=== PATIENT | female | born 1975 | race Caucasian/White ===

== ENCOUNTER 2016-06-03 07:38 | Emergency (ER) | payer OTHER ==
--- NOTE | 2016-06-03 08:21 | ED CLINICAL REPORT ---
Clinical Report - Physicians/Mid Levels [facility] [address] [place] [address] 06/03/2016 7:38 Patient: OLAMIDE PEREZ Time Seen: 08:13 Jun 03 2016. Arrived- By private vehicle. Historian- patient. CPT: ER phys charges level 4 (#[id number]). HISTORY OF PRESENT ILLNESS Chief Complaint: SKIN RASH. This started last night and is still present. It is described as itchy. It has been located on the trunk, right upper extremity and left upper extremity. No cause has been identified. Similar symptoms previously: None. Recent medical care: Not recently seen/assessed. REVIEW OF SYSTEMS No sore throat, cough, difficulty breathing, hoarseness or lump in throat. No enlarged lymph nodes, chest pain, abdominal pain, nausea or diarrhea. No joint pain. All systems otherwise negative, except as recorded above. PAST HISTORY Sprain. Respiratory Distress. Bronchitis. URI. COPD - Chronic Obstructive Pulmonary Disease. Lifestyle / Substance Problems. Abscess. Dental Abscess. Dental Caries. Dental Pain. Abdominal Pain. Immunizations. King's Cyst. Lower Extremity Pain. Obesity. Hypertension. LNMP - Last Normal Menstrual Period. . ADDITIONAL SURGERIES: Fracture Repair. Lt ankle . Medications: Effexor Oral 140mg , daily. Lisinopril Oral 10 mg, daily. Methadone HCl Oral 100mg daily . Allergies: Erythromycin. SOCIAL HISTORY Heavy tobacco smoker (cigarette)- 1 pack per day. ADDITIONAL NOTES The nursing notes have been reviewed. PHYSICAL EXAM Vital Signs: 06/03/2016 07:45 BP: 115/76. HR: 89. RR: 16. O2 saturation: 100%. Temp: 98.3 F. Pain level now: 6/10. Appearance: Alert. No acute distress. Eyes: Pupils equal, round and reactive to light. Conjunctivae and eyelids normal. No conjunctival findings. ENT: Ears normal. Nose normal. Pharynx normal. No pharyngeal erythema or swelling. Neck: Neck supple. CVS: Normal heart rate and rhythm. Heart sounds normal. Respiratory: No respiratory distress. Breath sounds normal. Chest nontender. No wheezes. Skin: Skin warm. No tender indurated area. No cellulitis. Rash present on the trunk. Rash present on the right upper extremity and left upper extremity. The rash is urticarial and erythematous. No abscess. Extremities: Normal external inspection. Extremities nontender. Neuro: Oriented X 3. No motor deficit. No sensory deficit. PROGRESS AND PROCEDURES Course of Care: Has not taken any allergy medications since onset of rash. Patient/family counseled. Disposition: Discharged. Condition: stable. CLINICAL IMPRESSION Acute hives secondary to allergy and unknown cause. INSTRUCTIONS (Check enviornment for all possibilities.). Warnings: Further evaluation is necessary. GENERAL WARNINGS: Return or contact your physician immediately if your condition worsens or changes unexpectedly, if not improving as expected, or if other problems arise. Prescription Medications: Prednisone 20 mg: take 3 orally every day for 5 days. Dispense fifteen (15). No refills. OTC Medications: Benadryl Allergy 25 mg (available over the counter): take 1-2 orally every 6 hours as needed for itching or allergies. Dispense twenty (20). No refill. Substitution is permissible. Follow-up: Return to the emergency department if worse. Follow up with your doctor in two days if not better. Understanding of the discharge instructions verbalized by patient. (Electronically signed by Misael Hill MD 06/06/2016 11:55)
--- NOTE | 2016-06-03 08:21 | ED NURSING NOTES ---
Clinical Report - Nurses [facility] [address] [place] [address] 06/03/2016 7:38 Patient: OLAMIDE PEREZ TRIAGE Triage time 07:45. Acuity: LEVEL 4. Chief Complaint: SKIN RASH. 07:55 06/03/16. Alert. No acute distress. SEPSIS SCREEN: Sepsis Screen. Negative (no infection suspected/documented). --07:55 Felicitas Salguero R.N. 07:45 06/03/16. BP: 115/76. HR: 89. RR: 16. O2 saturation: 100% on room air. Temp: 98.3 F. Pain level now: 09/14. Additional comments: ankle pain. --07:55 Felicitas Salguero R.N. Weight: 149.6 kg stated. Height/Length: 69 inches Per Patient. BMI: 48.7. --07:59 Felicitas Salguero R.N. Medications Effexor Oral 140mg , daily. Lisinopril Oral 10 mg, daily. Methadone HCl Oral 100mg daily . --07:48 Felicitas Salguero R.N. Allergies Erythromycin. --07:48 Felicitas Salguero R.N. History Arrived by private vehicle. Historian: patient. Location - back and abdomen. This started last night. It is described as itchy and burning. ( pt states she has not had anything new to eat and has not washed clothes with different detergent.). ( foot pain). Treatment MOTOR COACH DRIVER: None. PAST MEDICAL HX: Immunizations: status is unknown. Last normal menstrual period- 1 weeks ago. Denies current . SOCIAL HX: Heavy tobacco smoker- 1 pack per day. No alcohol use or drug use. ABUSE ASSESSMENT: No report of abuse. FALL RISK ASSESSMENT: Fall risk assessment completed. No fall risk identified. NUTRITIONAL RISK ASSESSMENT: The nutritional risk assessment revealed no deficiencies. FUNCTIONAL ASSESSMENT: Functional assessment: no impairments noted. LEARNING NEEDS ASSESSMENT: The learning needs assessment revealed no barriers. SKIN INTEGRITY ASSESSMENT: Skin integrity risk assessment completed. No skin integrity risk identified. --07:55 Felicitas Salguero R.N. PROBLEMS: Sprain. Respiratory Distress. Bronchitis. URI. COPD - Chronic Obstructive Pulmonary Disease. Lifestyle / Substance Problems. Abscess. Dental Abscess. Dental Caries. Dental Pain. Abdominal Pain. Immunizations. King's Cyst. Lower Extremity Pain. Obesity. Hypertension. LNMP - Last Normal Menstrual Period. --07:50 Felicitas Salguero R.N. ADDITIONAL SURGERIES: Fracture Repair. Lt ankle . --07:50 Felicitas Salguero R.N. Interventions ID band on patient. To treatment room. --07:55 Felicitas Salguero R.N. PHYSICAL ASSESSMENT 07:58 06/03/16. Ambulatory to room. GENERAL / NEURO / PSYCH: Alert. The patient does not appear to be in acute distress. Oriented X 4. RESPIRATORY: Respirations not labored. CVS: Capillary refill less than 2 seconds. Pulses within normal limits. SKIN: Skin is warm, dry and non-tender. Skin rash present. Urticaria present. Normal skin turgor. --07:58 Felicitas Salguero R.N. NURSING PROGRESS NOTES 07:59 06/03/16. Two patient identifiers checked. Call light placed in reach. Bed placed in lowest position. Brakes of bed on. Patient ready for evaluation- chart flagged and notification provided. --07:59 Felicitas Salguero R.N. DISPOSITION / DISCHARGE 08:38 06/03/16. No learning barriers present. Discharge instructions provided and reviewed with the patient. Reviewed warnings. Reviewed medication(s). Treatments reviewed. Patient verbalized understanding. Written instructions provided in Japanese. The patient was discharged by the physician. She was discharged home. She left the Emergency Department on crutches and via private vehicle. Patient driving. --08:38 Felicitas Salguero R.N. 08:36 06/03/16. BP: 117/72. HR: 102. RR: 17. O2 saturation: 100%. Temp: deferred. Pain level now: 09/14. --08:38 Felicitas Salguero R.N. 08:39 06/03/16. Departure time: 0836. --08:39 Felicitas Salguero R.N. Locked/Released at 06/03/2016 8:44 by Felicitas Salguero R.N.
--- NOTE | 2016-06-03 08:21 | ED NURSING NOTES ---
Clinical Report - Nurses [facility] [address] [place] [address] 06/03/2016 7:38 Patient: OLAMIDE PEREZ TRIAGE Triage time 07:45. Acuity: LEVEL 4. Chief Complaint: SKIN RASH. 07:55 06/03/16. Alert. No acute distress. SEPSIS SCREEN: Sepsis Screen. Negative (no infection suspected/documented). --07:55 Felicitas Salguero R.N. 07:45 06/03/16. BP: 115/76. HR: 89. RR: 16. O2 saturation: 100% on room air. Temp: 98.3 F. Pain level now: 09/14. Additional comments: ankle pain. --07:55 Felicitas Salguero R.N. Weight: 149.6 kg stated. Height/Length: 69 inches Per Patient. BMI: 48.7. --07:59 Felicitas Salguero R.N. Medications Effexor Oral 140mg , daily. Lisinopril Oral 10 mg, daily. Methadone HCl Oral 100mg daily . --07:48 Felicitas Salguero R.N. Allergies Erythromycin. --07:48 Felicitas Salguero R.N. History Arrived by private vehicle. Historian: patient. Location - back and abdomen. This started last night. It is described as itchy and burning. ( pt states she has not had anything new to eat and has not washed clothes with different detergent.). ( foot pain). Treatment LEGAL TRANSCRIBER: None. PAST MEDICAL HX: Immunizations: status is unknown. Last normal menstrual period- 1 weeks ago. Denies current . SOCIAL HX: Heavy tobacco smoker- 1 pack per day. No alcohol use or drug use. ABUSE ASSESSMENT: No report of abuse. FALL RISK ASSESSMENT: Fall risk assessment completed. No fall risk identified. NUTRITIONAL RISK ASSESSMENT: The nutritional risk assessment revealed no deficiencies. FUNCTIONAL ASSESSMENT: Functional assessment: no impairments noted. LEARNING NEEDS ASSESSMENT: The learning needs assessment revealed no barriers. SKIN INTEGRITY ASSESSMENT: Skin integrity risk assessment completed. No skin integrity risk identified. --07:55 Felicitas Salguero R.N. PROBLEMS: Sprain. Respiratory Distress. Bronchitis. URI. COPD - Chronic Obstructive Pulmonary Disease. Lifestyle / Substance Problems. Abscess. Dental Abscess. Dental Caries. Dental Pain. Abdominal Pain. Immunizations. King's Cyst. Lower Extremity Pain. Obesity. Hypertension. LNMP - Last Normal Menstrual Period. --07:50 Felicitas Salguero R.N. ADDITIONAL SURGERIES: Fracture Repair. Lt ankle . --07:50 Felicitas Salguero R.N. Interventions ID band on patient. To treatment room. --07:55 Felicitas Salguero R.N. PHYSICAL ASSESSMENT 07:58 06/03/16. Ambulatory to room. GENERAL / NEURO / PSYCH: Alert. The patient does not appear to be in acute distress. Oriented X 4. RESPIRATORY: Respirations not labored. CVS: Capillary refill less than 2 seconds. Pulses within normal limits. SKIN: Skin is warm, dry and non-tender. Skin rash present. Urticaria present. Normal skin turgor. --07:58 Felicitas Salguero R.N. NURSING PROGRESS NOTES 07:59 06/03/16. Two patient identifiers checked. Call light placed in reach. Bed placed in lowest position. Brakes of bed on. Patient ready for evaluation- chart flagged and notification provided. --07:59 Felicitas Salguero R.N. DISPOSITION / DISCHARGE 08:38 06/03/16. No learning barriers present. Discharge instructions provided and reviewed with the patient. Reviewed warnings. Reviewed medication(s). Treatments reviewed. Patient verbalized understanding. Written instructions provided in Thai. The patient was discharged by the physician. She was discharged home. She left the Emergency Department on crutches and via private vehicle. Patient driving. --08:38 Felicitas Salguero R.N. 08:36 06/03/16. BP: 117/72. HR: 102. RR: 17. O2 saturation: 100%. Temp: deferred. Pain level now: 09/14. --08:38 Felicitas Salguero R.N. 08:39 06/03/16. Departure time: 0836. --08:39 Felicitas Salguero R.N. Locked/Released at 06/03/2016 8:44 by Felicitas Salguero R.N.
--- NOTE | 2016-06-03 08:21 | ED CLINICAL REPORT ---
Clinical Report - Physicians/Mid Levels [facility] [address] [place] [address] 06/03/2016 7:38 Patient: OLAMIDE PEREZ Time Seen: 08:13 Jun 03 2016. Arrived- By private vehicle. Historian- patient. CPT: ER phys charges level 4 (#[id number]). HISTORY OF PRESENT ILLNESS Chief Complaint: SKIN RASH. This started last night and is still present. It is described as itchy. It has been located on the trunk, right upper extremity and left upper extremity. No cause has been identified. Similar symptoms previously: None. Recent medical care: Not recently seen/assessed. REVIEW OF SYSTEMS No sore throat, cough, difficulty breathing, hoarseness or lump in throat. No enlarged lymph nodes, chest pain, abdominal pain, nausea or diarrhea. No joint pain. All systems otherwise negative, except as recorded above. PAST HISTORY Sprain. Respiratory Distress. Bronchitis. URI. COPD - Chronic Obstructive Pulmonary Disease. Lifestyle / Substance Problems. Abscess. Dental Abscess. Dental Caries. Dental Pain. Abdominal Pain. Immunizations. King's Cyst. Lower Extremity Pain. Obesity. Hypertension. LNMP - Last Normal Menstrual Period. . ADDITIONAL SURGERIES: Fracture Repair. Lt ankle . Medications: Effexor Oral 140mg , daily. Lisinopril Oral 10 mg, daily. Methadone HCl Oral 100mg daily . Allergies: Erythromycin. SOCIAL HISTORY Heavy tobacco smoker (cigarette)- 1 pack per day. ADDITIONAL NOTES The nursing notes have been reviewed. PHYSICAL EXAM Vital Signs: 06/03/2016 07:45 BP: 115/76. HR: 89. RR: 16. O2 saturation: 100%. Temp: 98.3 F. Pain level now: 6/10. Appearance: Alert. No acute distress. Eyes: Pupils equal, round and reactive to light. Conjunctivae and eyelids normal. No conjunctival findings. ENT: Ears normal. Nose normal. Pharynx normal. No pharyngeal erythema or swelling. Neck: Neck supple. CVS: Normal heart rate and rhythm. Heart sounds normal. Respiratory: No respiratory distress. Breath sounds normal. Chest nontender. No wheezes. Skin: Skin warm. No tender indurated area. No cellulitis. Rash present on the trunk. Rash present on the right upper extremity and left upper extremity. The rash is urticarial and erythematous. No abscess. Extremities: Normal external inspection. Extremities nontender. Neuro: Oriented X 3. No motor deficit. No sensory deficit. PROGRESS AND PROCEDURES Course of Care: Has not taken any allergy medications since onset of rash. Patient/family counseled. Disposition: Discharged. Condition: stable. CLINICAL IMPRESSION Acute hives secondary to allergy and unknown cause. INSTRUCTIONS (Check enviornment for all possibilities.). Warnings: Further evaluation is necessary. GENERAL WARNINGS: Return or contact your physician immediately if your condition worsens or changes unexpectedly, if not improving as expected, or if other problems arise. Prescription Medications: Prednisone 20 mg: take 3 orally every day for 5 days. Dispense fifteen (15). No refills. OTC Medications: Benadryl Allergy 25 mg (available over the counter): take 1-2 orally every 6 hours as needed for itching or allergies. Dispense twenty (20). No refill. Substitution is permissible. Follow-up: Return to the emergency department if worse. Follow up with your doctor in two days if not better. Understanding of the discharge instructions verbalized by patient. (Electronically signed by Misael Hill MD 06/06/2016 11:55)
--- NOTE | 2016-06-06 11:55 | ED MED RECONCILIATION SUMMARY ---
Patient: OLAMIDE PEREZ Medication Reconciliation Report [facility] VisitID: [id number] [address] [place] [address] 41y, F Registration Date/Time: 06/03/2016 Weight: 149.6 kg Height/Length: 69 in. BMI: 48.7 ALLERGIES: Erythromycin The patient's Home Medications are listed below: THE FOLLOWING MEDICATIONS NEED TO BE RECONCILED: Effexor Oral 140mg , daily Lisinopril Oral 10 mg, daily Methadone HCl Oral 100mg daily The source(s) of the original Home Medication information: Not obtained. The following Medications were given to the patient in the Emergency Department: None. The following Medications were prescribed to the patient: Benadryl Allergy 25 mg (available over the counter): take 1-2 orally every 6 hours as needed for itching or allergies. Dispense twenty (20). No refill. Substitution is permissible. -- Miasel Hill MD Prednisone 20 mg: take 3 orally every day for 5 days. Dispense fifteen (15). No refills. -- Misael Hill MD
--- NOTE | 2016-06-06 11:55 | ED MAR SUMMARY ---
..... Medication Administration Record [facility] [address] [place], [place] [id number] Patient: OLAMIDE PEREZ Visit ID: [id number] 41y, F Weight: 149.6 kg Height/Length: 69 in BMI: 48.7 ALLERGIES: Erythromycin
--- NOTE | 2016-06-06 11:55 | ED MED RECONCILIATION SUMMARY ---
Patient: OLAMIDE PEREZ Medication Reconciliation Report [facility] VisitID: [id number] [address] [place] [address] 41y, F Registration Date/Time: 06/03/2016 Weight: 149.6 kg Height/Length: 69 in. BMI: 48.7 ALLERGIES: Erythromycin The patient's Home Medications are listed below: THE FOLLOWING MEDICATIONS NEED TO BE RECONCILED: Effexor Oral 140mg , daily Lisinopril Oral 10 mg, daily Methadone HCl Oral 100mg daily The source(s) of the original Home Medication information: Not obtained. The following Medications were given to the patient in the Emergency Department: None. The following Medications were prescribed to the patient: Benadryl Allergy 25 mg (available over the counter): take 1-2 orally every 6 hours as needed for itching or allergies. Dispense twenty (20). No refill. Substitution is permissible. -- Misael Hill MD Prednisone 20 mg: take 3 orally every day for 5 days. Dispense fifteen (15). No refills. -- Misael Hill MD
--- NOTE | 2016-06-06 11:55 | ED MAR SUMMARY ---
..... Medication Administration Record [facility] [address] [place], [place] [id number] Patient: OLAMIDE PEREZ Visit ID: [id number] 41y, F Weight: 149.6 kg Height/Length: 69 in BMI: 48.7 ALLERGIES: Erythromycin
--- NOTE | 2016-06-06 11:55 | ED DISCHARGE INSTRUCTIONS ---
Patient: OLAMIDE PEREZ General Instructions [facility] VisitID: [id number] [place] [address] 41y, F Registration Date/Time: 06/03/2016 Acute hives secondary to allergy and unknown cause. INSTRUCTIONS (Check enviornment for all possibilities.). Warnings: Further evaluation is necessary. GENERAL WARNINGS: Return or contact your physician immediately if your condition worsens or changes unexpectedly, if not improving as expected, or if other problems arise. Prescription Medications: Prednisone 20 mg: take 3 orally every day for 5 days. Dispense fifteen (15). No refills. OTC Medications: Benadryl Allergy 25 mg (available over the counter): take 1-2 orally every 6 hours as needed for itching or allergies. Dispense twenty (20). No refill. Substitution is permissible. Follow-up: Return to the emergency department if worse. Follow up with your doctor in two days if not better. Understanding of the discharge instructions verbalized by patient. ADDITIONAL INFORMATION Hives Hives is an itchy red rash that can appear suddenly and move about your body. It goes away in one place and comes back in another. This is usually caused by something that you are allergic to such as: EATING: fruit, shellfish, chocolate, nuts, tomatoes or medicine BREATHING: pollens, animal hair/fur or mold spores Exposure to cold air, sun rays or exercise can sometimes cause an attack. Many times we cannot find a cause. Medicines can be used to reduce itching and swelling. The rash will usually fade over several days, but can sometimes last up to two weeks. Home Care: 1) Do not wear tight clothing and do not take hot baths/showers since heat can make the itching worse. 2) An ice pack (ice cubes in a plastic bag, wrapped in a towel) will reduce local areas of redness and itching. Lanacaine cream or Solarcaine spray (or other product containing "benzocaine") will reduce itching. 3) Oral Benadryl (diphenhydramine) is an antihistamine available at drug and grocery stores. Unless a prescription antihistamine was given, Benadryl may be used to reduce itching if large areas of the skin are involved. Use lower doses during the daytime and higher doses at bedtime since the drug may make you sleepy. [NOTE: Do not use Benadryl if you have glaucoma or if you are a man with trouble urinating due to an enlarged prostate.] Claritin (loratadine) is an antihistamine that causes less drowsiness and is a good alternative for daytime use. 4) If you know what you are sensitive to, avoid this substance. Future reactions could be worse than this one. Follow Up with your doctor as directed by our staff, if symptoms do not begin to improve in two days. If you have had a severe reaction, or have had several episodes of hives, then ask your doctor about allergy testing to find out what you are allergic to. Get Prompt Medical Attention if any of the following occur: -- Trouble breathing or swallowing -- New or increased swelling in the face, lips, tongue or throat -- Dizziness, weakness or fainting Diphenhydramine Tannate Chewable tablet What is this medicine? DIPHENHYDRAMINE (dye camila baig) is an antihistamine. It is used to treat the symptoms of an allergic reaction. How should I use this medicine? Take this medicine by mouth. Chew it completely before swallowing. Follow the directions on the prescription label. Take your doses at regular intervals. Do not take your medicine more often than directed. Talk to your lithographic plate maker regarding the use of this medicine in children. While this drug may be prescribed for children as young as 6 years old for selected conditions, precautions do apply. Patients over 65 years old may have a stronger reaction and need a smaller dose. What side effects may I notice from receiving this medicine? Side effects that you should report to your doctor or health healthcare prof as soon as possible: allergic reactions like skin rash, itching or hives, swelling of the face, lips, or tongue changes in vision confused, agitated, nervous irregular or fast heartbeat tremor trouble passing urine unusual bleeding or bruising unusually weak or tired Side effects that usually do not require medical attention (report to your doctor or health healthcare prof if they continue or are bothersome): constipation, diarrhea drowsy headache loss of appetite stomach upset, vomiting thick mucous What may interact with this medicine? Do not take this medicine with any of the following medications: MAOIs like Carbex, Eldepryl, Marplan, Nardil, and Parnate This medicine may also interact with the following medications: alcohol barbiturates, like phenobarbital medicines for bladder spasm like oxybutynin, tolterodine medicines for blood pressure medicines for depression, anxiety, or psychotic disturbances medicines for movement abnormalities or Parkinson's disease medicines for sleep other medicines for cold, cough or allergy some medicines for the stomach like chlordiazepoxide, dicyclomine What if I miss a dose? If you miss a dose, take it as soon as you can. If it is almost time for your next dose, take only that dose. Do not take double or extra doses. Where should I keep my medicine? Keep out of the reach of children. Store at room temperature between 15 and 30 degrees C (59 and 86 degrees F). Keep container closed tightly. Throw away any unused medicine after the expiration date. What should I tell my health care provider before I take this medicine? They need to know if you have any of these conditions: glaucoma high blood pressure heart disease liver disease lung or breathing disease, like asthma pain or difficulty passing urine phenylketonuria prostate trouble ulcers or other stomach problems an unusual or allergic reaction to diphenhydramine, sulfites, other medicines foods, dyes, or preservatives or trying to get breast-feeding What should I watch for while using this medicine? Visit your doctor or health healthcare prof for regular check ups. Tell your doctor or healthcare professional if your symptoms do not start to get better or if they get worse. Your mouth may get dry. Chewing sugarless gum or sucking hard candy, and drinking plenty of water may help. Contact your doctor if the problem does not go away or is severe. This medicine may cause dry eyes and blurred vision. If you wear contact lenses you may feel some discomfort. Lubricating drops may help. See your eye doctor if the problem does not go away or is severe. You may get drowsy or dizzy. Do not drive, use machinery, or do anything that needs mental alertness until you know how this medicine affects you. Do not stand or sit up quickly, especially if you are an older patient. This reduces the risk of dizzy or fainting spells. Alcohol may interfere with the effect of this medicine. Avoid alcoholic drinks. You have been given the following additional information: Hives Diphenhydramine Tannate Chewable tablet (Electronically signed by Misael Hill MD 06/06/2016 11:55)
--- NOTE | 2016-06-06 11:55 | ED DISCHARGE INSTRUCTIONS ---
Patient: OLAMIDE PEREZ General Instructions [facility] VisitID: [id number] [place] [address] 41y, F Registration Date/Time: 06/03/2016 Acute hives secondary to allergy and unknown cause. INSTRUCTIONS (Check enviornment for all possibilities.). Warnings: Further evaluation is necessary. GENERAL WARNINGS: Return or contact your physician immediately if your condition worsens or changes unexpectedly, if not improving as expected, or if other problems arise. Prescription Medications: Prednisone 20 mg: take 3 orally every day for 5 days. Dispense fifteen (15). No refills. OTC Medications: Benadryl Allergy 25 mg (available over the counter): take 1-2 orally every 6 hours as needed for itching or allergies. Dispense twenty (20). No refill. Substitution is permissible. Follow-up: Return to the emergency department if worse. Follow up with your doctor in two days if not better. Understanding of the discharge instructions verbalized by patient. ADDITIONAL INFORMATION Hives Hives is an itchy red rash that can appear suddenly and move about your body. It goes away in one place and comes back in another. This is usually caused by something that you are allergic to such as: EATING: fruit, shellfish, chocolate, nuts, tomatoes or medicine BREATHING: pollens, animal hair/fur or mold spores Exposure to cold air, sun rays or exercise can sometimes cause an attack. Many times we cannot find a cause. Medicines can be used to reduce itching and swelling. The rash will usually fade over several days, but can sometimes last up to two weeks. Home Care: 1) Do not wear tight clothing and do not take hot baths/showers since heat can make the itching worse. 2) An ice pack (ice cubes in a plastic bag, wrapped in a towel) will reduce local areas of redness and itching. Lanacaine cream or Solarcaine spray (or other product containing "benzocaine") will reduce itching. 3) Oral Benadryl (diphenhydramine) is an antihistamine available at drug and grocery stores. Unless a prescription antihistamine was given, Benadryl may be used to reduce itching if large areas of the skin are involved. Use lower doses during the daytime and higher doses at bedtime since the drug may make you sleepy. [NOTE: Do not use Benadryl if you have glaucoma or if you are a man with trouble urinating due to an enlarged prostate.] Claritin (loratadine) is an antihistamine that causes less drowsiness and is a good alternative for daytime use. 4) If you know what you are sensitive to, avoid this substance. Future reactions could be worse than this one. Follow Up with your doctor as directed by our staff, if symptoms do not begin to improve in two days. If you have had a severe reaction, or have had several episodes of hives, then ask your doctor about allergy testing to find out what you are allergic to. Get Prompt Medical Attention if any of the following occur: -- Trouble breathing or swallowing -- New or increased swelling in the face, lips, tongue or throat -- Dizziness, weakness or fainting Diphenhydramine Tannate Chewable tablet What is this medicine? DIPHENHYDRAMINE (dye camila baig) is an antihistamine. It is used to treat the symptoms of an allergic reaction. How should I use this medicine? Take this medicine by mouth. Chew it completely before swallowing. Follow the directions on the prescription label. Take your doses at regular intervals. Do not take your medicine more often than directed. Talk to your retail performance coach regarding the use of this medicine in children. While this drug may be prescribed for children as young as 6 years old for selected conditions, precautions do apply. Patients over 65 years old may have a stronger reaction and need a smaller dose. What side effects may I notice from receiving this medicine? Side effects that you should report to your doctor or health workforce investment act career manager as soon as possible: allergic reactions like skin rash, itching or hives, swelling of the face, lips, or tongue changes in vision confused, agitated, nervous irregular or fast heartbeat tremor trouble passing urine unusual bleeding or bruising unusually weak or tired Side effects that usually do not require medical attention (report to your doctor or health workforce investment act career manager if they continue or are bothersome): constipation, diarrhea drowsy headache loss of appetite stomach upset, vomiting thick mucous What may interact with this medicine? Do not take this medicine with any of the following medications: MAOIs like Carbex, Eldepryl, Marplan, Nardil, and Parnate This medicine may also interact with the following medications: alcohol barbiturates, like phenobarbital medicines for bladder spasm like oxybutynin, tolterodine medicines for blood pressure medicines for depression, anxiety, or psychotic disturbances medicines for movement abnormalities or Parkinson's disease medicines for sleep other medicines for cold, cough or allergy some medicines for the stomach like chlordiazepoxide, dicyclomine What if I miss a dose? If you miss a dose, take it as soon as you can. If it is almost time for your next dose, take only that dose. Do not take double or extra doses. Where should I keep my medicine? Keep out of the reach of children. Store at room temperature between 15 and 30 degrees C (59 and 86 degrees F). Keep container closed tightly. Throw away any unused medicine after the expiration date. What should I tell my health care provider before I take this medicine? They need to know if you have any of these conditions: glaucoma high blood pressure heart disease liver disease lung or breathing disease, like asthma pain or difficulty passing urine phenylketonuria prostate trouble ulcers or other stomach problems an unusual or allergic reaction to diphenhydramine, sulfites, other medicines foods, dyes, or preservatives or trying to get breast-feeding What should I watch for while using this medicine? Visit your doctor or health workforce investment act career manager for regular check ups. Tell your doctor or healthcare professional if your symptoms do not start to get better or if they get worse. Your mouth may get dry. Chewing sugarless gum or sucking hard candy, and drinking plenty of water may help. Contact your doctor if the problem does not go away or is severe. This medicine may cause dry eyes and blurred vision. If you wear contact lenses you may feel some discomfort. Lubricating drops may help. See your eye doctor if the problem does not go away or is severe. You may get drowsy or dizzy. Do not drive, use machinery, or do anything that needs mental alertness until you know how this medicine affects you. Do not stand or sit up quickly, especially if you are an older patient. This reduces the risk of dizzy or fainting spells. Alcohol may interfere with the effect of this medicine. Avoid alcoholic drinks. You have been given the following additional information: Hives Diphenhydramine Tannate Chewable tablet (Electronically signed by Misael Hill MD 06/06/2016 11:55)
== END 2016-06-03 08:39 | disposition home or self-care (01) ==
LOC: ED SRH 07:38
DX: L50.0 Allergic urticaria (principal); I10 Essential (primary) hypertension; J44.9 Chronic obstructive pulmonary disease, unspecified; Z79.899 Other long term (current) drug therapy; Z88.1 Allergy status to other antibiotic agents

== ENCOUNTER 2016-07-29 08:46 | Emergency (ER) | payer OTHER ==
--- NOTE | 2016-07-29 10:37 | DIAGNOSTIC IMAGING REPORT ---
PROCEDURE: XR SHOULDER 2 OR MORE VW-RIGHT INDICATION: TRAUMA/INJURY TECHNIQUE: Three views. COMPARISON: None. FINDINGS: No fracture or dislocation. Normal AC and glenohumeral joints. 5 mm rotator cuff calcification consistent with calcific tendonitis. IMPRESSION: 1. Calcific tendonitis 2. No acute changes.
--- NOTE | 2016-07-29 11:05 | ED ORDER SUMMARY ---
..... Patient: OLAMIDE PEREZ OrderSheet [facility] VisitID: [id number] [address] [place] [address] 41y, F Registration Date/Time: 07/29/2016 ORDER SHEET Weight: 149.6 kg (stated) Allergies: Erythromycin GENERAL ORDERS: Shoulder 2V or more Right Urgent (10:17 07/29/2016 Safia GLOVER) (Ack 10:23 Raymond) (10:42 Africa Mata) MEDICATION ORDERS: IV FLUIDS: ORDER SHEET NOTES: [Electronically signed by Blanca Miranda R.N. (11:22 07/29/2016)] [Electronically signed by Bandar Bautista MD (02:49 07/31/2016)] [Electronically locked/signed by Blanca Miranda R.N. (11:07/29/2016)]
--- NOTE | 2016-07-29 11:05 | ED ORDER SUMMARY ---
..... Patient: OLAMIDE PEREZ OrderSheet [facility] VisitID: [id number] [address] [place] [address] 41y, F Registration Date/Time: 07/29/2016 ORDER SHEET Weight: 149.6 kg (stated) Allergies: Erythromycin GENERAL ORDERS: Shoulder 2V or more Right Urgent (10:17 07/29/2016 Safia GLOVER) (Ack 10:23 Raymond) (10:42 Africa Mata) MEDICATION ORDERS: IV FLUIDS: ORDER SHEET NOTES: [Electronically signed by Blanca Miranda R.N. (11:22 07/29/2016)] [Electronically signed by Bandar Bautista MD (02:49 07/31/2016)] [Electronically locked/signed by Blanca Miranda R.N. (11:07/29/2016)]
--- NOTE | 2016-07-29 11:05 | ED CLINICAL REPORT ---
Clinical Report - Physicians/Mid Levels [facility] [address] [place] [place] [address] 07/29/2016 8:48 Patient: OLAMIDE PEREZ Time Seen: 09:36. Arrived- By private vehicle. Historian- patient. HISTORY OF PRESENT ILLNESS Chief Complaint: FALL. Location of injuries- right shoulder. The injury occurred 2 days. Occurred at home. Fell down > 15 stairs while standing. The patient complains of moderate pain. No neck pain or loss of consciousness. REVIEW OF SYSTEMS The patient has had new onset of pain-related weakness of the right arm (moderate). No chills, fever, sweats, calf pain or chest pain. No cough, difficulty breathing, pedal edema, palpitations or abdominal pain. No constipation, diarrhea, nausea, vomiting or urinary problems. All systems otherwise negative, except as recorded above. PAST HISTORY Primary physician (MARK BONILLA). SOCIAL HISTORY Current every day heavy tobacco smoker (cigarette)- less than 1 pack per day. No alcohol use or drug use. FAMILY HISTORY No significant family medical history. ADDITIONAL NOTES The nursing notes have been reviewed. PHYSICAL EXAM Vital Signs: 07/29/2016 08:52 BP: 136/74. HR: 87. RR: 18. O2 saturation: 100%. Temp: 99.2 F. Pain level now: 7/10. Have been reviewed. Appearance: Alert. She is morbidly obese. No acute distress. Head: Head non-tender. No swelling of head. Eyes: Pupils equal, round and reactive to light. ENT: No dental injury. Pharynx normal. Neck: Painless ROM. Non-tender. No vertebral tenderness. CVS: Heart sounds normal. Respiratory: Breath sounds normal. Abdomen: No visible injury. Back: ROM normal. Skin: Skin intact. Skin warm and dry. Normal skin color. Normal skin turgor. Extremities: Right shoulder: moderate tenderness. Limited ROM due to pain (diminished flexion and external rotation). Neurovascular intact distally. Pelvis stable. Neuro: No motor deficit. No sensory deficit. LABS, X-RAYS, AND EKG Rt Shoulder X-ray: (IMPRESSION: 1. Calcific tendonitis 2. No acute changes.). The X-rays were interpreted by the radiologist and contemporaneously by me. PROGRESS AND PROCEDURES Course of Care: Patient is stable. Patient/family counseled. Old medical records reviewed. Disposition: Discharged. Condition: stable. CLINICAL IMPRESSION Contusion to the right shoulder. Fall on same level by tripping. INSTRUCTIONS Apply ice for 20 minutes four times a day until better. Don't apply ice directly to skin and don't use while asleep. Warnings: COMPLICATIONS: Complications from this condition include: possible injury to a tendon and possible injury to a ligament. Future problems may include loss of function and pain. GENERAL WARNINGS: Return or contact your physician immediately if your condition worsens or changes unexpectedly, if not improving as expected, or if other problems arise. Prescription Medications: Toradol 10 mg tablets: Take 1 tablet orally every 6 hours as needed. Dispense fifteen (15). No refills. Substitution is permissible. Follow-up: Follow up with your doctor (MARK BONILLA) in four days if not better. Follow up with an orthopedic surgeon- as recommended by your primary care physician. Understanding of the discharge instructions verbalized by patient. (Electronically signed by Bandar Bautista MD 07/31/2016 2:49)
--- NOTE | 2016-07-29 11:05 | ED NURSING NOTES ---
Clinical Report - Nurses [facility] [place] [address] 07/29/2016 8:48 [id number] Triage time 08:52 Jul 29 2016. Acuity: LEVEL 4. Chief Complaint: FALL DOWN > 15 STAIRS (Patient let cat out of home and tripped fell down 17steps). 08:57 07/29/16. SEPSIS SCREEN: Sepsis Screen. Negative (no infection suspected/documented). DENIZ COMA SCORE: [place] Coma Scale: 15- eyes open spontaneously (4); best verbal response- oriented x 4 (5); best motor response- obeys commands (6). --08:57 Blanca Miranda R.N. 08:52 07/29/16. BP: 136/74 (large adult cuff) taken on the left arm, while sitting. HR: 87. RR: 18. O2 saturation: 100% on room air. Temp: 99.2 F (oral). Pain level now: 10/14. --08:57 Blanca Miranda R.N. Weight: 149.6 kg stated. Height/Length: 69 inches Per Patient. BMI: 48.7. --08:53 Blanca Miranda R.N. Medications Effexor Oral 140mg , daily. Lisinopril Oral 10 mg, daily. Methadone HCl Oral 100mg daily . --08:54 Blanca Miranda R.N. Allergies Erythromycin. --08:54 Blanca Miranda R.N. History Arrived by private vehicle. Historian: patient. Primary physician (MARK BONILLA). Location of injuries: right shoulder. This occurred yesterday (430 AM). She has had mild right arm pain (Shoulder). Treatment LAB TECH: Ice. PAST MEDICAL HX: Hypertension. Last normal menstrual period was 2 weeks ago. SOCIAL HX: Current every day heavy tobacco smoker- 1 pack per day. No alcohol use or drug use. No infectious disease exposure. ABUSE ASSESSMENT: No report of abuse. --08:57 Blanca Miranda R.N. PROBLEMS: Sprain. Bronchitis. COPD - Chronic Obstructive Pulmonary Disease. Lifestyle / Substance Problems. Dental Caries. Abdominal Pain. Lower Extremity Pain. Obesity. Hypertension. --08:54 Blanca Miranda R.N. ADDITIONAL SURGERIES: Fracture Repair. Lt ankle . --08:54 Blanca Miranda R.N. Interventions ID band on patient. To treatment room. --08:57 Blanca Miranda R.N. PHYSICAL ASSESSMENT 08:58 07/29/16. Ambulatory to room. GENERAL / NEURO / PSYCH: Alert. Oriented X 4. Appears in no acute distress. HEENT: Pupils equal, round and reactive to light. Head non-tender. RESPIRATORY: Respirations not labored. Chest nontender. Breath sounds within normal limits. CVS: Pulses within normal limits. Capillary refill less than 2 seconds. GI / : Abdomen soft and nontender. EXTREMITIES: Limited ROM present in the right shoulder. Right shoulder: tenderness. Limited ROM due to pain (diminished adduction, flexion and extension). SKIN: Skin intact. Skin is warm. --08:58 Blanca Miranda R.N. NURSING PROGRESS NOTES 08:58 07/29/16. The plan of care for this patient has been created. Cold pack applied. Patient gowned. Reassurance given. Two patient identifiers checked. Call light placed in reach. Side rails up x 1. Bed placed in lowest position. Brakes of bed on. Patient ready for evaluation- chart flagged and ED physician notified. --08:58 Blanca Miranda R.N. 10:16 07/29/16. ( Patient offered blanked, she declined). --10:16 Blanca Miranda R.N. 10:15 07/29/16. BP: 114/74 (large adult cuff) taken on the left arm, while sitting. HR: 77. RR: 18 (regular). O2 saturation: 96% on room air. Pain level now: 10/14. --10:16 Blanca Miranda R.N. 10:41 07/29/16. ( Xray in with patient). --10:41 Blanca Miranda R.N. 10:42 07/29/16. ( Xray done with patient). --10:42 Blanca Miranda R.N. 11:05 07/29/16. ( Patient offered something to drink or eat. She declined). --11:05 Blanca Miranda R.N. 11:04 07/29/16. BP: 139/77 (large adult cuff) taken on the left arm, while sitting. HR: 98. RR: 18 (regular). O2 saturation: 96% on room air. Pain level now: 10/14. --11:05 Blanca Miranda R.N. DISPOSITION / DISCHARGE late entry - 11:15 07/29/16. Condition at departure: unchanged. No learning barriers present. Discharge instructions provided and reviewed with the patient. Reviewed medication(s) side effects, precautions and dosing information. Prescription(s) given to the patient. Treatments reviewed (ice for pain management). Patient verbalized understanding. Written instructions provided in Czech. The patient was discharged by the physician. She was discharged home. She left the Emergency Department ambulatory on crutches and via private vehicle. Patient driving. --11:21 Blanca Miranda R.N. 11:19 07/29/16. BP: 130/76 (large adult cuff) taken on the left arm, while sitting. HR: 90. RR: 18 (regular). O2 saturation: 96% on room air. Temp: 98.6 F (oral). Pain level now: 10/14. --11:21 Blanca Miranda R.N. Departure time: 11:15 Jul 29 2016. --11:21 Blanca Miranda R.N. Locked/Released at 07/29/2016 11:22 by Blanca Miranda R.N.
--- NOTE | 2016-07-29 11:05 | ED CLINICAL REPORT ---
Clinical Report - Physicians/Mid Levels [facility] [address] [place] [address] 07/29/2016 8:48 Patient: OLAMIDE PEREZ Time Seen: 09:36. Arrived- By private vehicle. Historian- patient. HISTORY OF PRESENT ILLNESS Chief Complaint: FALL. Location of injuries- right shoulder. The injury occurred 2 days. Occurred at home. Fell down > 15 stairs while standing. The patient complains of moderate pain. No neck pain or loss of consciousness. REVIEW OF SYSTEMS The patient has had new onset of pain-related weakness of the right arm (moderate). No chills, fever, sweats, calf pain or chest pain. No cough, difficulty breathing, pedal edema, palpitations or abdominal pain. No constipation, diarrhea, nausea, vomiting or urinary problems. All systems otherwise negative, except as recorded above. PAST HISTORY Primary physician (MARK BONILLA). SOCIAL HISTORY Current every day heavy tobacco smoker (cigarette)- less than 1 pack per day. No alcohol use or drug use. FAMILY HISTORY No significant family medical history. ADDITIONAL NOTES The nursing notes have been reviewed. PHYSICAL EXAM Vital Signs: 07/29/2016 08:52 BP: 136/74. HR: 87. RR: 18. O2 saturation: 100%. Temp: 99.2 F. Pain level now: 7/10. Have been reviewed. Appearance: Alert. She is morbidly obese. No acute distress. Head: Head non-tender. No swelling of head. Eyes: Pupils equal, round and reactive to light. ENT: No dental injury. Pharynx normal. Neck: Painless ROM. Non-tender. No vertebral tenderness. CVS: Heart sounds normal. Respiratory: Breath sounds normal. Abdomen: No visible injury. Back: ROM normal. Skin: Skin intact. Skin warm and dry. Normal skin color. Normal skin turgor. Extremities: Right shoulder: moderate tenderness. Limited ROM due to pain (diminished flexion and external rotation). Neurovascular intact distally. Pelvis stable. Neuro: No motor deficit. No sensory deficit. LABS, X-RAYS, AND EKG Rt Shoulder X-ray: (IMPRESSION: 1. Calcific tendonitis 2. No acute changes.). The X-rays were interpreted by the radiologist and contemporaneously by me. PROGRESS AND PROCEDURES Course of Care: Patient is stable. Patient/family counseled. Old medical records reviewed. Disposition: Discharged. Condition: stable. CLINICAL IMPRESSION Contusion to the right shoulder. Fall on same level by tripping. INSTRUCTIONS Apply ice for 20 minutes four times a day until better. Don't apply ice directly to skin and don't use while asleep. Warnings: COMPLICATIONS: Complications from this condition include: possible injury to a tendon and possible injury to a ligament. Future problems may include loss of function and pain. GENERAL WARNINGS: Return or contact your physician immediately if your condition worsens or changes unexpectedly, if not improving as expected, or if other problems arise. Prescription Medications: Toradol 10 mg tablets: Take 1 tablet orally every 6 hours as needed. Dispense fifteen (15). No refills. Substitution is permissible. Follow-up: Follow up with your doctor (MARK BONILLA) in four days if not better. Follow up with an orthopedic surgeon- as recommended by your primary care physician. Understanding of the discharge instructions verbalized by patient. (Electronically signed by Bandar Bautista MD 07/31/2016 2:49)
--- NOTE | 2016-07-29 11:05 | ED NURSING NOTES ---
Clinical Report - Nurses Located Within [facility] [place] [address] 07/29/2016 8:48 [id number] Triage time 08:52 Jul 29 2016. Acuity: LEVEL 4. Chief Complaint: FALL DOWN > 15 STAIRS (Patient let cat out of home and tripped fell down 17steps). 08:57 07/29/16. SEPSIS SCREEN: Sepsis Screen. Negative (no infection suspected/documented). DENIZ COMA SCORE: [place] Coma Scale: 15- eyes open spontaneously (4); best verbal response- oriented x 4 (5); best motor response- obeys commands (6). --08:57 Blanca Miranda R.N. 08:52 07/29/16. BP: 136/74 (large adult cuff) taken on the left arm, while sitting. HR: 87. RR: 18. O2 saturation: 100% on room air. Temp: 99.2 F (oral). Pain level now: 10/14. --08:57 Blanca Miranda R.N. Weight: 149.6 kg stated. Height/Length: 69 inches Per Patient. BMI: 48.7. --08:53 Blanca Miranda R.N. Medications Effexor Oral 140mg , daily. Lisinopril Oral 10 mg, daily. Methadone HCl Oral 100mg daily . --08:54 Blanca Miranda R.N. Allergies Erythromycin. --08:54 Blanca Miranda R.N. History Arrived by private vehicle. Historian: patient. Primary physician (MARK BONILLA). Location of injuries: right shoulder. This occurred yesterday (430 AM). She has had mild right arm pain (Shoulder). Treatment OB NURSE: Ice. PAST MEDICAL HX: Hypertension. Last normal menstrual period was 2 weeks ago. SOCIAL HX: Current every day heavy tobacco smoker- 1 pack per day. No alcohol use or drug use. No infectious disease exposure. ABUSE ASSESSMENT: No report of abuse. --08:57 Blanca Miranda R.N. PROBLEMS: Sprain. Bronchitis. COPD - Chronic Obstructive Pulmonary Disease. Lifestyle / Substance Problems. Dental Caries. Abdominal Pain. Lower Extremity Pain. Obesity. Hypertension. --08:54 Blanca Miranda R.N. ADDITIONAL SURGERIES: Fracture Repair. Lt ankle . --08:54 Blanca Miranda R.N. Interventions ID band on patient. To treatment room. --08:57 Blanca Miranda R.N. PHYSICAL ASSESSMENT 08:58 07/29/16. Ambulatory to room. GENERAL / NEURO / PSYCH: Alert. Oriented X 4. Appears in no acute distress. HEENT: Pupils equal, round and reactive to light. Head non-tender. RESPIRATORY: Respirations not labored. Chest nontender. Breath sounds within normal limits. CVS: Pulses within normal limits. Capillary refill less than 2 seconds. GI / : Abdomen soft and nontender. EXTREMITIES: Limited ROM present in the right shoulder. Right shoulder: tenderness. Limited ROM due to pain (diminished adduction, flexion and extension). SKIN: Skin intact. Skin is warm. --08:58 Blanca Miranda R.N. NURSING PROGRESS NOTES 08:58 07/29/16. The plan of care for this patient has been created. Cold pack applied. Patient gowned. Reassurance given. Two patient identifiers checked. Call light placed in reach. Side rails up x 1. Bed placed in lowest position. Brakes of bed on. Patient ready for evaluation- chart flagged and ED physician notified. --08:58 Blanca Miranda R.N. 10:16 07/29/16. ( Patient offered blanked, she declined). --10:16 Blanca Miranda R.N. 10:15 07/29/16. BP: 114/74 (large adult cuff) taken on the left arm, while sitting. HR: 77. RR: 18 (regular). O2 saturation: 96% on room air. Pain level now: 10/14. --10:16 Blanca Miranda R.N. 10:41 07/29/16. ( Xray in with patient). --10:41 Blanca Miranda R.N. 10:42 07/29/16. ( Xray done with patient). --10:42 Blanca Miranda R.N. 11:05 07/29/16. ( Patient offered something to drink or eat. She declined). --11:05 Blanca Miranda R.N. 11:04 07/29/16. BP: 139/77 (large adult cuff) taken on the left arm, while sitting. HR: 98. RR: 18 (regular). O2 saturation: 96% on room air. Pain level now: 10/14. --11:05 Blanca Miranda R.N. DISPOSITION / DISCHARGE late entry - 11:15 07/29/16. Condition at departure: unchanged. No learning barriers present. Discharge instructions provided and reviewed with the patient. Reviewed medication(s) side effects, precautions and dosing information. Prescription(s) given to the patient. Treatments reviewed (ice for pain management). Patient verbalized understanding. Written instructions provided in Kiswahili. The patient was discharged by the physician. She was discharged home. She left the Emergency Department ambulatory on crutches and via private vehicle. Patient driving. --11:21 Blanca Miranda R.N. 11:19 07/29/16. BP: 130/76 (large adult cuff) taken on the left arm, while sitting. HR: 90. RR: 18 (regular). O2 saturation: 96% on room air. Temp: 98.6 F (oral). Pain level now: 10/14. --11:21 Blanca Miranda R.N. Departure time: 11:15 Jul 29 2016. --11:21 Blanca Miranda R.N. Locked/Released at 07/29/2016 11:22 by Blanca Miranda R.N.
--- NOTE | 2016-07-31 02:50 | ED MED RECONCILIATION SUMMARY ---
Patient: OLAMIDE PEREZ Medication Reconciliation Report [facility] VisitID: [id number] [address] [place] [address] 41y, F Registration Date/Time: 07/29/2016 Weight: 149.6 kg Height/Length: 69 in. BMI: 48.7 ALLERGIES: Erythromycin The patient's Home Medications are listed below: THE FOLLOWING MEDICATIONS NEED TO BE RECONCILED: Effexor Oral 140mg , daily Lisinopril Oral 10 mg, daily Methadone HCl Oral 100mg daily The source(s) of the original Home Medication information: Not obtained. The following Medications were given to the patient in the Emergency Department: None. The following Medications were prescribed to the patient: Toradol 10 mg tablets: Take 1 tablet orally every 6 hours as needed. Dispense fifteen (15). No refills. Substitution is permissible. -- Bandar Bautista MD
--- NOTE | 2016-07-31 02:50 | ED MAR SUMMARY ---
..... Medication Administration Record [facility] [address] [place], [place] [id number] Patient: OLAMIDE PEREZ Visit ID: [id number] 41y, F Weight: 149.6 kg Height/Length: 69 in BMI: 48.7 ALLERGIES: Erythromycin
--- NOTE | 2016-07-31 02:50 | ED MED RECONCILIATION SUMMARY ---
Patient: OLAMIDE PEREZ Medication Reconciliation Report [facility] VisitID: [id number] [address] [place] [address] 41y, F Registration Date/Time: 07/29/2016 Weight: 149.6 kg Height/Length: 69 in. BMI: 48.7 ALLERGIES: Erythromycin The patient's Home Medications are listed below: THE FOLLOWING MEDICATIONS NEED TO BE RECONCILED: Effexor Oral 140mg , daily Lisinopril Oral 10 mg, daily Methadone HCl Oral 100mg daily The source(s) of the original Home Medication information: Not obtained. The following Medications were given to the patient in the Emergency Department: None. The following Medications were prescribed to the patient: Toradol 10 mg tablets: Take 1 tablet orally every 6 hours as needed. Dispense fifteen (15). No refills. Substitution is permissible. -- Bandar Bautista MD
--- NOTE | 2016-07-31 02:50 | ED MAR SUMMARY ---
..... Medication Administration Record [facility] [address] [place], [place] [id number] Patient: OLAMIDE PEREZ Visit ID: [id number] 41y, F Weight: 149.6 kg Height/Length: 69 in BMI: 48.7 ALLERGIES: Erythromycin
--- NOTE | 2016-07-31 02:50 | ED DISCHARGE INSTRUCTIONS ---
Patient: OLAMIDE PEREZ General Instructions [facility] VisitID: [id number] [place] [address] 41y, F Registration Date/Time: 07/29/2016 Contusion to the right shoulder. Fall on same level by tripping. INSTRUCTIONS Apply ice for 20 minutes four times a day until better. Don't apply ice directly to skin and don't use while asleep. Warnings: COMPLICATIONS: Complications from this condition include: possible injury to a tendon and possible injury to a ligament. Future problems may include loss of function and pain. GENERAL WARNINGS: Return or contact your physician immediately if your condition worsens or changes unexpectedly, if not improving as expected, or if other problems arise. Prescription Medications: Toradol 10 mg tablets: Take 1 tablet orally every 6 hours as needed. Dispense fifteen (15). No refills. Substitution is permissible. Follow-up: Follow up with your doctor (MARK BONILLA) in four days if not better. Follow up with an orthopedic surgeon- as recommended by your primary care physician. Understanding of the discharge instructions verbalized by patient. ADDITIONAL INFORMATION Mechanical Fall You have had a fall today. It appears that the cause is mechanical. That means that you slipped, tripped or lost your balance. If your fall had been due to fainting or a seizure, further tests would be required. Home Care: Rest today and resume your normal activities when you are feeling back to normal. If you were injured during the fall, follow the advice from your doctor regarding care of your injury. You may use acetaminophen (Tylenol) or ibuprofen (Motrin, Advil) to control pain, unless another pain medicine was prescribed. [NOTE: If you have chronic liver or kidney disease or ever had a stomach ulcer or GI bleeding, talk with your doctor before using these medicines.] Fall Prevention: Was there anything that caused your fall that can be fixed, removed, or replaced? Make your home safe by keeping walkways clear of objects you may trip over. Use non-slip pads under rugs. Do not walk in poorly lit areas. Do not stand on chairs or wobbly ladders. Use caution when reaching overhead or looking upward. This position can cause a loss of balance. Be sure your shoes fit properly, have non-slip bottoms and are in good condition. Be cautious when going up and down curbs, and walking on uneven sidewalks. If your balance is poor, consider using a cane or walker. Stay as active as you can. Balance, flexibility, strength, and endurance all come from exercise. They all play a role in preventing falls. Follow Up with your doctor or as advised by our staff. Get Prompt Medical Attention if any of the following occur: Repeated mechanical falls, or unexplained falls Dizziness, fainting or seizure Severe headache Chest pain or shortness of breath Palpitations (very rapid or very slow or irregular heartbeat) Blood in vomit, stools (black or red color) Weakness of an arm or leg or one side of the face Difficulty with speech or vision Shoulder Contusion You have a contusion of your shoulder. This causes local pain, swelling, and sometimes bruising. There are no broken bones. This injury takes a few days, or up to six weeks to heal, depending on the severity. Moderate to severe shoulder contusions are treated with a sling or shoulder immobilizer. Minor contusions can be treated without any special support. Home Care: If a sling was provided, leave it in place for the time advised by your doctor. If you are unsure how long to wear it, ask for advice. If the sling becomes loose, adjust it so that your forearm is level with the ground and the shoulder feels well supported. Apply an ice pack (ice cubes in a plastic bag, wrapped in a towel) over the injured area for 20 minutes every 1 to 2 hours the first day for pain relief. Continue this 3 to 4 times a day until the pain and swelling go away. You may use acetaminophen (Tylenol) or ibuprofen (Motrin, Advil) to control pain, unless another pain medicine was prescribed. (NOTE: If you have chronic liver or kidney disease or ever had a stomach ulcer or GI bleeding, talk with your doctor before using these medicines.) Shoulder joints become stiff if left in a sling for too long. Kffkb-ls-mcgotk exercises should usually be started within the first ten days after injury. Consult your doctor on what type of exercises to do and how soon to start. Unless you were told otherwise, you may remove the sling to shower or bathe. Follow Up with your doctor, or as advised by our staff, if you are not starting to improve within the next 5 days. Get Prompt Medical Attention if any of the following occur: Pain or swelling increases Large amount of bruising of the shoulder or upper arm Hand or fingers become cold, blue, numb or tingly Ketorolac Tromethamine Oral tablet What is this medicine? KETOROLAC (ismael toe ROLE ak) is a non-steroidal anti-inflammatory drug (NSAID). It is used for a short while to treat moderate to severe pain, including pain after surgery. It should not be used for more than 5 days. How should I use this medicine? Take this medicine by mouth with a full glass of water. Follow the directions on the prescription label. Take your medicine at regular intervals. Do not take your medicine more often than directed. Do not take more than the recommended dose. A special MedGuide will be given to you by the pharmacist with each prescription and refill. Be sure to read this information carefully each time. Talk to your light air defense artillery crewmember regarding the use of this medicine in children. While this drug may be prescribed for children as young as 16 years of age for selected conditions, precautions do apply. Patients over 65 years old may have a stronger reaction and need a smaller dose. What side effects may I notice from receiving this medicine? Side effects that you should report to your doctor or health home care assistant as soon as possible: allergic reactions like skin rash, itching or hives, swelling of the face, lips, or tongue black or tarry stools breathing problems changes in vision chest pain high blood pressure nausea or vomiting redness, blistering, peeling or loosening of the skin, including inside the mouth severe abdominal pain slurred speech or weakness on one side of the body unexplained weight gain or swelling unusual bleeding or bruising unusually weak or tired yellowing of eyes or skin Side effects that usually do not require medical attention (report to your doctor or health home care assistant if they continue or are bothersome): diarrhea dizziness headache heartburn What may interact with this medicine? Do not take this medicine with any of the following medications: aspirin and aspirin-like medicines cidofovir methotrexate NSAIDs, medicines for pain and inflammation, like ibuprofen or naproxen pemetrexed probenecid This medicine may also interact with the following medications: alcohol alendronate alprazolam carbamazepine cyclosporine diuretics flavocoxid fluoxetine ginkgo lithium medicines for high blood pressure like enalapril medicines that affect platelets like pentoxifylline medicines that treat or prevent blood clots like heparin, warfarin muscle relaxants phenytoin steroid medicines like prednisone or cortisone thiothixene What if I miss a dose? If you miss a dose, take it as soon as you can. If it is almost time for your next dose, take only that dose. Do not take double or extra doses. Where should I keep my medicine? Keep out of the reach of children. Store at room temperature between 20 and 25 degrees C (68 and 77 degrees F). Throw away any unused medicine after the expiration date. What should I tell my health care provider before I take this medicine? They need to know if you have any of these conditions: asthma bleeding problems like hemophilia cigarette smoker drink more than 3 alcohol containing drinks a day heart disease or circulation problems such as heart failure or leg edema (fluid retention) high blood pressure kidney disease liver disease stomach bleeding or ulcers an unusual or allergic reaction to ketorolac, aspirin, other NSAIDs, other medicines, foods, dyes, or preservatives or trying to get breast-feeding What should I watch for while using this medicine? Tell your doctor or health home care assistant if your pain does not get better. Talk to your doctor before taking another medicine for pain. Do not treat yourself. This medicine does not prevent heart attack or stroke. In fact, this medicine may increase the chance of a heart attack or stroke. The chance may increase with longer use of this medicine and in people who have heart disease. If you take aspirin to prevent heart attack or stroke, talk with your doctor or health home care assistant. Do not take medicines such as ibuprofen and naproxen with this medicine. Side effects such as stomach upset, nausea, or ulcers may be more likely to occur. Many medicines available without a prescription should not be taken with this medicine. This medicine can cause ulcers and bleeding in the stomach and intestines at any time during treatment. Do not smoke cigarettes or drink alcohol. These increase irritation to your stomach and can make it more susceptible to damage from this medicine. Ulcers and bleeding can happen without warning symptoms and can cause . You may get drowsy or dizzy. Do not drive, use machinery, or do anything that needs mental alertness until you know how this medicine affects you. Do not stand or sit up quickly, especially if you are an older patient. This reduces the risk of dizzy or fainting spells. This medicine can cause you to bleed more easily. Try to avoid damage to your teeth and gums when you brush or floss your teeth. You have been given the following additional information: Fall, Mechanical Shoulder Contusion Ketorolac Tromethamine Oral tablet (Electronically signed by Bandar Bautista MD 07/31/2016 2:49)
== END 2016-07-29 11:15 | disposition home or self-care (01) ==
LOC: ED SRH 08:46
DX: S40.011A Contusion of right shoulder, initial encounter (principal); W10.8XXA Fall (on) (from) other stairs and steps, initial encounter; Y93.89 Activity, other specified; Y92.009 Unspecified place in unspecified non-institutional (private) residence as the place of occurrence of the external cause; Y99.8 Other external cause status; F17.210 Nicotine dependence, cigarettes, uncomplicated; I10 Essential (primary) hypertension; Z79.899 Other long term (current) drug therapy; Z88.1 Allergy status to other antibiotic agents